=== PATIENT | female | born 1995 | race Caucasian/White ===

== ENCOUNTER 2016-11-29 10:56 | Emergency (ER) | payer BC, OTHER ==
[2016-11-29] MEDS ORDERED: ACETAMINOPHEN 500 MG TAB PO ONE (11:01)
[2016-11-29] MEDS ORDERED: NS 1,000 ML IV ONE ×2 (11:32→13:27)
[2016-11-29] MEDS ORDERED: METOCLOPRAMIDE 10 MG/2 ML VIAL IVP ONE (11:33)
--- NOTE | 2016-11-29 11:54 | EDPHY ---
H & P Stated Complaint: fever body aches dry throat HPI/ROS: CHIEF COMPLAINT: Fever, headache, malaise, body aches HISTORY OF PRESENT ILLNESS: 2 days of headache, fever, body aches, joint pain, nausea. Gradual onset with concentration. Moderate to severe. No particular modifying factors. She has some generalized neck pain and body pain, but no neck stiffness. No recent travel or surgery. Reports a history of chronic Lyme disease and is being monitored by primary care physician for this. She feels that she has a migraine, and she is concerned that she might have the fluid may possibly be . She has no chest pain or shortness of breath. Some cough. Nausea but no vomiting. No other associated complaints or modifying factors. REVIEW OF SYSTEMS: Ten systems reviewed and are negative unless otherwise noted in the HPI EXAMINATION General Appearance: Alert, no distress Head: normocephalic, atraumatic Eyes: Pupils equal and round, no conjunctival pallor or injection ENT, Mouth: Mucous membranes moist , uvula midline. No erythema. Neck: Normal inspection, supple, non-tender . Full active and passive range of motion without pain. No meningismus. Respiratory: Lungs are clear to auscultation . No rhonchi, rales or diminishment Cardiovascular: tachycardic rate with regular rhythm Gastrointestinal: Abdomen is soft and nontender. No tympany. No rigidity. Nonacute abdomen Back: non-tender, no bony abnormalities Neurological: A&O, nonfocal, no pronator drift Skin: Warm and dry, no rash Extremities: Nontender, no pedal edema Psychiatric: Mood and affect normal DIFFERENTIAL DIAGNOSES: Including but not limited to influenza, Lyme disease, viral illness, migraine, meningitis MDM: 1:27 p.m. headache with fever and elevated white count. Rest of her labs are within normal limits. She has no meningismus on examination, but to rule out meningitis I did discuss the need for lumbar puncture. We discussed the risks, benefits and alternatives, including worsening condition and even . The patient is discussing this with her significant other at bedside at this time. In the interim I will provide another liter of IV fluid resuscitation. 1:55 p.m. patient is feeling better following 0.5 L of fluid and wants to finish the 2nd L of IV fluid prior to making a decision on the LP. I informed her that we can monitor until the fluid is done and we need to make a decision on whether she would like to have the LP performed or not. She is still resting comfortably and is hemodynamically stable. 3:00 p.m. patient has consented to lumbar puncture. This was performed without complication with collection of 4 mL of fluid as noted below. She tolerated procedure without any complications or bleeding. The fluid was clear in appearance with no gross blood noted. Instructed to lay flat for 1 hour. Labs are pending. 4:10 p.m. I have re-evaluated the patient. She is feeling significantly better than at time of arrival. Heart rate has come down. She is afebrile. She has mild headache but no neck pain or stiffness. CSF has returned within normal limits. There is no blood cells. Four white blood cells. Glucose is 58, protein is 31. At this time she has been evaluated by the attending physician. We are in agreement that she is stable for discharge home. She will be discharged home with instructions to remain supine for the next 1-2 hours. She also instructed to follow up with the primary care physician, to increase her water intake, and on return to the emergency depart precautions: Worsening headache, neck pain or stiffness, persistent fever, persistent nausea or vomiting. Patient is comfortable with this plan and discharged home in stable condition, much improved from time of arrival. PROCEDURE Procedure: Lumbar puncture. Indication: Headache, fever, leukocytosis After verbal informed consent from patient explaining the risks including infection, bleeding, and neurologic damage, a lumbar puncture was performed after the patient was prepped and draped in the usual fashion. The back was anesthetized with 1% lidocaine. Approximately 4 cc of clear fluid was obtained (4 x 1cc). Opening pressure was not obtained. There were no complications. The procedure was performed by myself. SUPERVISION: Patient was evaluated in conjunction with the supervising physician. Please see their note for details. Source: Patient Exam Limitations: No limitations - Personal History LMP (Females 10-55): 1-7 Days Ago Current Tetanus/Diphtheria Vaccine: Yes Current Tetanus Diphtheria and Acellular Pertussis (TDAP): Yes Tetanus Vaccine Date: <10 years - Medical/Surgical History Hx Asthma: No Hx Chronic Respiratory Disease: No Hx Diabetes: No Hx Cardiac Disease: No Hx Renal Disease: No Hx Cirrhosis: No Hx Alcoholism: No Hx HIV/AIDS: No Hx Splenectomy or Spleen Trauma: No Other PMH: medical esophageal stricture. surgery esophageal expansion, wisdom teeth removal. 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:16) Anaphylaxis Home Medications: Medication Instructions Recorded Adderall 10 MG (RX) 12/14/13 Generess Fe Chewable Tablet 12/14/13 Albuterol [Proventil Inhaler] 1 - 2 puffs IH Q4 #1 mdi 07/24/16 HYDROcodone/HOMATROPINE HYCODA 1 tsp PO Q4-6PRN PRN #120 ml 07/24/16 [Hycodan Syrup (RX)] Hydrocodone/APAP 5/325 [Telferner 1 - 2 each PO Q4-6PRN PRN #20 tab 07/24/16 5/325] Hydrocodone/APAP 5/325 [Telferner 1 - 2 tab PO Q6H PRN #20 tab 11/29/16 5/325 (*)] Medical Decision Making - Data Points Laboratory Results: Laboratory Results 11/29/16 12:25 11/29/16 12:25 11/29/16 11/29/16 11/29/16 15:00 13:29 12:25 WBC 16.14 H 10^3/uL (3.80-9.50) RBC 3.92 L 10^6/uL (4.18-5.33) Hgb 12.5 L g/dL (12.6-16.3) Hct 35.5 L % (38.0-47.0) MCV 90.6 fL (81.5-99.8) MCH 31.9 pg (27.9-34.1) MCHC 35.2 g/dL (32.4-36.7) RDW 12.4 % (11.5-15.2) Plt Count 222 10^3/uL (150-400) MPV 9.5 fL (8.7-11.7) Neut % (Auto) 84.3 H % (39.3-74.2) Lymph % (Auto) 5.9 L % (15.0-45.0) [place] % (Auto) 9.0 % (4.5-13.0) Eos % (Auto) 0.0 L % (0.6-7.6) Baso % (Auto) 0.2 L % (0.3-1.7) Nucleat RBC Rel Count 0.0 % (0.0-0.2) Absolute Neuts (auto) 13.62 H 10^3/uL (1.70-6.50) Absolute Lymphs (auto) 0.95 L 10^3/uL (1.00-3.00) Absolute Monos (auto) 1.45 H 10^3/uL (0.30-0.80) Absolute Eos (auto) 0.00 L 10^3/uL (0.03-0.40) Absolute Basos (auto) 0.03 10^3/uL (0.02-0.10) Absolute Nucleated RBC 0.00 10^3/uL (0-0.01) Immature Gran % 0.6 % (0.0-1.1) Immature Gran # 0.09 10^3/uL (0.00-0.10) Sodium 135 mEq/L (134-144) Potassium 3.6 mEq/L (3.5-5.2) Chloride 99 mEq/L (97-110) Carbon Dioxide 22 mEq/l (22-31) Anion Gap 14 mEq/L (8-16) BUN 6 L mg/dL (7-23) Creatinine 0.5 L mg/dL (0.6-1.0) Estimated GFR > 60 Glucose 88 mg/dL (70-100) Calcium 8.7 mg/dL (8.5-10.4) Total Bilirubin 0.7 mg/dL (0.1-1.4) AST 19 IU/L (14-46) ALT 30 IU/L (9-52) Alkaline Phosphatase 56 IU/L (38-126) Creatine Kinase 33 IU/L (0-156) Total Protein 6.7 g/dL (6.3-8.2) Albumin 3.6 g/dL (3.5-5.0) Lipase 19.0 L IU/L (23-300) Beta HCG, Qual NEGATIVE Urine Color PALE YELLOW Urine Appearance CLEAR Urine pH 6.0 (5.0-7.5) Ur Specific [place] 1.001 L (1.002-1.030) Urine Protein NEGATIVE (NEGATIVE) Urine Ketones 1+ H (NEGATIVE) Urine Blood 1+ H (NEGATIVE) Urine Nitrate NEGATIVE (NEGATIVE) Urine Bilirubin NEGATIVE (NEGATIVE) Urine Urobilinogen NEGATIVE EU (0.2-1.0) Ur Leukocyte Esterase NEGATIVE (NEGATIVE) Urine RBC NONE SEEN /hpf (0-3) Urine WBC NONE SEEN /hpf (0-3) Ur Epithelial Cells TRACE /lpf (NONE-1+) Ur Culture Indicated? NOT INDICATED (NI) Urine Glucose NEGATIVE (NEGATIVE) CSF Tube Number 4 CSF Appearance CLEAR (CLEAR) CSF Color COLORLESS (COLORLESS) CSF Supernatant COLORLESS (COLORLESS) CSF WBC 4 /mm3 (0-5) CSF RBC 0 /mm3 (0-0) CSF Glucose 58 mg/dL (50-75) CSF Total Protein 31 mg/dL (12-60) Influenza Typ A,B (DFA) 11/29/16 11:05 WBC RBC Hgb Hct MCV MCH MCHC RDW Plt Count MPV Neut % (Auto) Lymph % (Auto) [place] % (Auto) Eos % (Auto) Baso % (Auto) Nucleat RBC Rel Count Absolute Neuts (auto) Absolute Lymphs (auto) Absolute Monos (auto) Absolute Eos (auto) Absolute Basos (auto) Absolute Nucleated RBC Immature Gran % Immature Gran # Sodium Potassium Chloride Carbon Dioxide Anion Gap BUN Creatinine Estimated GFR Glucose Calcium Total Bilirubin AST ALT Alkaline Phosphatase Creatine Kinase Total Protein Albumin Lipase Beta HCG, Qual Urine Color Urine Appearance Urine pH Ur Specific [place] Urine Protein Urine Ketones Urine Blood Urine Nitrate Urine Bilirubin Urine Urobilinogen Ur Leukocyte Esterase Urine RBC Urine WBC Ur Epithelial Cells Ur Culture Indicated? Urine Glucose CSF Tube Number CSF Appearance CSF Color CSF Supernatant CSF WBC CSF RBC CSF Glucose CSF Total Protein Influenza Typ A,B (DFA) NEGATIVE FOR FLU (NEGATIVE) Microbiology Results: MICROBIOLOGY 11/29/16 15:00 Cerebral Spinal Fluid Gram Stain - Final Medications Given: Discontinued Medications Acetaminophen (Tylenol) 1,000 mg PO EDNOW ONE Stop: 11/29/16 11:02 Last Admin: 11/29/16 11:08 Dose: 1,000 mg Diphenhydramine HCl (Benadryl Injection) 25 mg IVP EDNOW ONE Stop: 11/29/16 11:34 Last Admin: 11/29/16 12:39 Dose: 25 mg Sodium Chloride (Ns) 1,000 mls @ 0 mls/hr IV ONCE ONE PRN Reason: Wide Open Stop: 11/29/16 11:33 Last Admin: 11/29/16 12:39 Dose: 1,000 mls Sodium Chloride (Ns) 1,000 mls @ 0 mls/hr IV ONCE ONE PRN Reason: Wide Open Stop: 11/29/16 13:28 Last Admin: 11/29/16 13:35 Dose: 1,000 mls Metoclopramide HCl (Reglan Injection) 10 mg IVP EDNOW ONE Stop: 11/29/16 11:34 Last Admin: 11/29/16 12:39 Dose: 10 mg Departure - Departure Disposition: Home, Routine, Self-Care Clinical Impression: Myalgia Fever Qualifiers: Fever type: unspecified Qualifier Code: (R50.9) Fever, unspecified Headache Qualifiers: Headache type: unspecified Headache chronicity pattern: acute headache Intractability: not intractable Qualifier Code: (R51) Headache Condition: Good Instructions: General Headache (ED), Fever in Adults (ED), Viral Syndrome (ED) Additional Instructions: Follow-up with primary care physician for further care. Return to the ER for return of headache, neck stiffness, persistent fever, nausea or vomiting , confusion. Prescriptions: Hydrocodone/APAP 5/325 [Telferner 5/325 (*)] 1 - 2 tab PO Q6H PRN #20 tab PRN Reason: Pain, Mild
[2016-11-29 12:36] LABS: % IMMATURE GRANULYOCYTES 0.6 % (0.0-1.1); ABSOLUTE IMMATURE GRANULOCYTES 0.09 10^3/uL (0.00-0.10); ADD DIFF? NO; ADD MORPH? NO; ADD SCAN? NO; ATYPICAL LYMPHOCYTE FLAG 0 (0-99); FRAGMENT RBC FLAG 0 (0-99); HEMATOCRIT 35.5 % (38.0-47.0); HEMOGLOBIN 12.5 g/dL (12.6-16.3); LEFT SHIFT FLG 20 (0-99); LIPEMIA HEMOLYSIS FLAG 90 (0-99); MEAN CELL HEMOGLOBIN 31.9 pg (27.9-34.1); MEAN CELL HEMOGLOBIN CONCENTR. 35.2 g/dL (32.4-36.7); MEAN CELL VOLUME 90.6 fL (81.5-99.8); MEAN PLATELET VOLUME 9.5 fL (8.7-11.7); PLATELET CLUMPS FLAG 0 (0-99); PLATELET COUNT 222 10^3/uL (150-400); RED BLOOD CELL COUNT 3.92 10^6/uL (4.18-5.33); RED CELL DISTRIBUTION WIDTH 12.4 % (11.5-15.2)
[2016-11-29 12:58] LABS: ALANINE AMINOTRANSFERASE 30 IU/L (9-52); ALBUMIN 3.6 g/dL (3.5-5.0); ALKALINE PHOSPHATASE 56 IU/L (38-126); ANION GAP 14 mEq/L (8-16); ASPARTATE AMINOTRANSFERASE 19 IU/L (14-46); BILIRUBIN,TOTAL 0.7 mg/dL (0.1-1.4); CALCIUM 8.7 mg/dL (8.5-10.4); CARBON DIOXIDE 22 mEq/l (22-31); CHLORIDE 99 mEq/L (97-110); CREATININE 0.5 mg/dL (0.6-1.0); GLOMERULAR FILTRATION RATE > 60; GLUCOSE 88 mg/dL (70-100); POTASSIUM 3.6 mEq/L (3.5-5.2); SODIUM 135 mEq/L (134-144); TOTAL PROTEIN 6.7 g/dL (6.3-8.2)
[2016-11-29 13:43] LABS: COLOR PALE YELLOW; LEUKOCYTE ESTERASE,URINE NEGATIVE (NEGATIVE); NITRITE,URINE NEGATIVE (NEGATIVE)
[2016-11-29 13:48] LABS: RBC,URINE NONE SEEN /hpf (0-3); WBC,URINE NONE SEEN /hpf (0-3)
[2016-11-29 13:58] VITALS: O2SAT 96
[2016-11-29 15:35] LABS: CSF APPEARANCE CLEAR (CLEAR); CSF COLOR COLORLESS (COLORLESS); CSF SUPERNATANT COLORLESS (COLORLESS); WBC, CSF 4 /mm3 (0-5)
[2016-11-29 15:52] LABS: PROTEIN, CSF 31 mg/dL (12-60)
[2016-11-29] MEDS ORDERED: IBUPROFEN 600 MG TAB PO ONE (16:35)
[2016-11-29 16:52] VITALS: BP 125/66; PULSE 105; RESP 18; TEMP 99.2
== END 2016-11-29 16:49 | disposition home or self-care (01) ==
DX: R50.9 Fever, unspecified (principal); M79.1 Myalgia; R51 Headache
CPT/HCPCS: 96374; J2765